=== PATIENT | female | born 1985 | race African-American/Black ===

== ENCOUNTER 2016-11-17 17:28 | Emergency (ER) | payer MEDICAID | END 2016-11-17 20:25 | disposition home or self-care (01) | LOC: D.ER 17:28 | DX: R00.2 Palpitations (principal); F17.200 Nicotine dependence, unspecified, uncomplicated ==

== ENCOUNTER 2017-11-30 21:42 | Emergency (ER) | payer MEDICAID | END 2017-12-01 01:11 | disposition home or self-care (01) | LOC: D.ER 21:42 | DX: L25.9 Unspecified contact dermatitis, unspecified cause (principal) ==

== ENCOUNTER 2019-06-08 03:38 | Emergency (ER) | payer SELFPAY ==
[~2019-06-08] VITALS: Ht 175.3 cm; Wt 81.4 kg
[2019-06-08 03:43] VITALS: Ht 175.3 cm; Wt 81.4 kg
[2019-06-08] MEDS ORDERED: KLONOPIN0.5 MG PO (03:45)
[2019-06-08 04:38] LABS: HCG URINE NEGATIVE (NEGATIVE)
[2019-06-08 04:39] LABS: APPEARANCE CLOUDY (CLEAR); COLOR YELLOW (YELLOW); SPECIFIC GRAVITY 1.005 (1.005-1.020)
[2019-06-08 04:40] LABS: BILIRUBIN NEGATIVE (NEGATIVE); GLUCOSE NEGATIVE (NEGATIVE); KETONE NEGATIVE (NEGATIVE); NITRITE POSITIVE (NEGATIVE); PROTEIN 3+ mg/dL (NEGATIVE); UROBILINOGEN NORMAL (NORMAL)
[2019-06-08 04:41] LABS: BACTERIA MANY /hpf (NONE SEEN); EPITHELIAL CELLS 0-5 /hpf (0-5); RED CELLS - URINE 0-5 /hpf (0-5)
[2019-06-08 05:15] LABS: BASOPHILS 0.1 % (0-2); EOSINOPHILS 0.4 % (0-7); HEMATOCRIT 35.3 % (36.0-48.0); HEMOGLOBIN 11.8 g/dL (12-16); IMMATURE GRANULOCYTES 0.4 % (0-5); LYMPHOCYTES 9.4 % (15-50); MCH 24.7 pg (26.0-34.0); MCHC 33.4 g/dL (31.0-37.0); MCV 73.8 fL (80.0-100.0); MEAN PLATELET VOLUME 9.5 fL (7.4-10.4); NEUTROPHILS 80.7 % (40-80); PLATELET COUNT 228 10x3/uL (130-400); RBC 4.78 10x6/uL (4.00-5.40); RDW 13.6 % (11.5-14.5); WBC 14.3 10x3/uL (4.8-10.8)
[2019-06-08 05:27] LABS: HCG SERUM NEGATIVE (NEGATIVE)
[2019-06-08 05:33] LABS: ALBUMIN 3.4 g/dL (3.4-5.0); ALKALINE PHOSPHATASE 84 U/L (46-116); ALT (SGPT) 23 U/L (10-68); AMYLASE - SERUM 57 U/L (25-115); BILIRUBIN - TOTAL 0.31 mg/dL (0.2-1.3); CALC OSMOLALITY 274 mosm/kg (275-300); CALCIUM 8.4 mg/dL (8.5-10.1); CARBON DIOXIDE 26.6 mmol/L (21.0-32.0); CHLORIDE - SERUM 102 mmol/L (98-107); CREATININE - SERUM 0.8 mg/dL (0.6-1.3); GLUCOSE 104 mg/dL (74-106); LIPASE 133 U/L (73-393); POTASSIUM - SERUM 3.5 mmol/L (3.5-5.1); PROTEIN - SERUM 6.8 g/dL (6.4-8.2); SODIUM 138 mmol/L (136-145); UREA NITROGEN 10 mg/dL (7-18); eGFR NON AFRICAN AMERICAN 87 mL/min (90-120)
[2019-06-08] MEDS ORDERED: CHRONULAC30 ML PO (05:56)
[2019-06-08] MEDS ORDERED: MACROBID100 MG PO (05:56)
[2019-06-08] MEDS ORDERED: ZOFRAN ODT4 MG/UDTAB PO (05:56)
[2019-06-08 06:08] VITALS: BP 111/54
== END 2019-06-08 06:08 | disposition home or self-care (01) ==
LOC: D.ER 03:38
PROVIDERS: Family Medicine
DX: N39.0 Urinary tract infection, site not specified (principal); K59.09 Other constipation; F17.210 Nicotine dependence, cigarettes, uncomplicated